=== PATIENT | female | born 1955 | race Caucasian/White ===

== ENCOUNTER 2019-03-22 11:00 | Outpatient (RCR) | payer OTHER | END 2019-04-08 | LOC: OT 11:00 | PROVIDERS: ATTEND Surgery Surgery of the Hand | DX: M25.641 Stiffness of right hand, not elsewhere classified (principal); M25.631 Stiffness of right wrist, not elsewhere classified; M79.641 Pain in right hand; M25.531 Pain in right wrist; R53.1 Weakness; M25.441 Effusion, right hand ==